=== PATIENT | female | born 1990 | race Caucasian/White ===

== ENCOUNTER 2023-09-11 15:57 | Emergency (ER) | payer OTHER, SELFPAY ==
--- NOTE | ~2023-09-11 | CT_ITS ---
EXAMINATION: CT abdomen pelvis w con DATE: 09/11/2023 21:56 INDICATION: suprapubic and RLQ pain TECHNIQUE: Computed tomography (CT) of the abdomen and pelvis was performed with 100 mL Omnipaque-350 intravenous contrast. Automated exposure control and iterative reconstruction technique were employe d. The dose-length product was 365.90 mGy-cm. COMPARISON: Ultrasound pelvis, same date. FINDINGS: Lower thorax: Unremarkable Liver: Normal. Biliary/Gallbladder: Gallbladder is normal. No bile duct dilation. Pancreas: No mass or duct dilation. Spleen: Normal. Adrenals:No mass. Kidneys: No suspicious mass, obstructing stone, or hydronephrosis. GI tract: Mild distal esophageal and gastric wall edema. The duodenal C-loop does not cross the midli ne. The majority of small bowel is located in the right abdomen. The majority of the large bowel is l ocated in the left abdomen, with the cecum in the deep pelvis. No small or large bowel dilation. Norm al appendix morphology. The appendix is located in the deep right pelvis. Diverticulosis without dive rticulitis. Mesentery/Peritoneum: No ascites, mass, or free air. Single enlarged mesenteric lymph node, likely re active. Retroperitoneum: No mass. Pelvis: Normal uterus. IUD in good position. Mildly prominent periuterine and pelvic veins. Multiple bilateral ovarian follicles. Simple 1.6 cm simple left ovarian cyst versus dominant follicle. No CT e vidence of ovarian torsion normal urinary bladder. Soft Tissues: Soft tissues and body wall unremarkable. Bones: No acute osseous finding. IMPRESSION: Mild esophagitis/gastritis. Intestinal malrotation, without current acute complication. Intestinal malrotation predisposes patien ts to mid gut volvulus and internal hernias. Consider surgical referral. Mildly prominent periuterine and pelvic veins, as can be seen with pelvic congestion syndrome. Correl ate clinically for persistent dull pelvic pain lasting > 6 months, dysmenorrhea, dyspareunia, postcoi mac ache, and urinary symptoms. Reviewed, dictated and finalized at location K. IMPRESSION: Mild esophagitis/gastritis. Intestinal malrotation, without current acute complication. Intestinal malrotat ion predisposes patients to mid gut volvulus and internal hernias. Consider dk gical referral. Mildly prominent periuterine and pelvic veins, as can be seen with pelvic conge stion syndrome. Correlate clinically for persistent dull pelvic pain lasting > 6 months, dysmenorrhea, dyspareunia, postcoital ache, and urinary symptoms.
--- NOTE | ~2023-09-11 | US_ITS ---
EXAMINATION: US pelvic complete w TV DATE: 09/11/2023 19:24 INDICATION: pelvic pain, spotting TECHNIQUE: Multiple transabdominal and endovaginal sonographic images of the pelvis were obtained. COMPARISON: None. FINDINGS: Uterus: 6.4 x 2.8 x 3.4 cm. IUD, in good position. Multiple nabothian cysts. Endometrial complex mignon ures 3 mm. Right Ovary: 2.2 x 2.7 x 2.2 cm. Vascular flow is present. Left Ovary: Not visualized. There is no free fluid in the pelvis. IMPRESSION: Left ovary not visualized. IUD, in good position. Otherwise normal pelvic sonogram findings. Reviewed, dictated and finalized at location K. IMPRESSION: Left ovary not visualized. IUD, in good position. Otherwise normal pelvic sonog chang findings.
[2023-09-11 16:15] VITALS: BP 127/76; PULSE 86; RESP 17; TEMP 36.6; O2SAT 98
--- NOTE | 2023-09-11 17:25 | ED.FEMALEGU ---
HPI - Female Genitourinary General Chief complaint: Urogenital-Female <KIMBERLY Hernandez Last Filed: 09/11/23 17:33> Stated complaint: bacterial vaginosis <KIMBERLY Hernandez Last Filed: 09/11/23 17:33> Time Seen by Provider: 09/11/23 17:25 <KIMBERLY Hernandez Last Filed: 09/11/23 17:33> Focused HPI: Patient is a 33 y/o female who presents to the ED with c/o pelvic pain. Patient reports that she was treated for BV 1 month ago. She has had recurrent pelvic and suprapubic pain over the last 1 week, which she felt may be a recurrence of her BV. She made appointment with her OBGYN, Dr. Royce Orozco for . Over the last couple days, she has been feeling lightheaded. She went to an urgent care yesterday and was prescribed Flagyl. Has had 3 doses so far, but still feeling lightheaded today. Also noted her urine to be dark today, which prompted her presentation. Reports intermittent nausea, dysuria, thick/green vaginal discharge, vaginal spotting, denies vomiting, fevers. Patient is currently sexually active. GENERAL: Well-appearing, well-nourished, and in no acute distress. HEAD: Normocephalic, atraumatic. CHEST: Clear to auscultation. ?No respiratory distress. HEART: Regular rate and rhythm.? NEURO: ?Alert and oriented x3. Patient screened in triage and initial orders placed.? ?Additional care and disposition to be based upon?diagnostic testing and treatment. <KIMBERLY Hernandez Last Filed: 09/11/23 17:33> Source: patient <KIMBERLY Hernandez Last Filed: 09/11/23 17:33> Mode of arrival: ambulatory <KIMBERLY Hernandez Last Filed: 09/11/23 17:33> Limitations: no limitations <KIMBERLY Hernandez Last Filed: 09/11/23 17:33> History of Present Illness HPI Narrative: 33-year-old female presents to emergency department complaining of pelvic pain for about 1 week. Patient states she was treated for BV previously and is unsure if she has BV again because it feels the same. She was reporting pain her suprapubic region and some on the right lower quadrant. States she started her period yesterday and is having light vaginal some bleeding she describes as spotting. She reports Dysuria and a green vaginal discharge but denies foul smell. She is reporting some vaginal itchiness. Denies vomiting, fever, diarrhea. No prior surgeries on her abdomen. She does have an IUD in place. she is sexually active with 1 partner And denies concern for STDs. <Elizabeth Sanon PA-C - Last Filed: 09/11/23 23:46> Related Data Allergies/Adverse reactions: Allergies Allergy/AdvReac Type Severity Reaction Status Date / Time No Known Allergies Allergy Verified 09/11/23 15:58 <Luh Frederick PA-C - Last Filed: 09/11/23 17:33> Review of Systems Review of Systems: CONSTITUTIONAL: Denies fever, chills, or sweats. EYES: Denies visual changes, redness, or discharge. ENT: Denies rhinorrhea, congestion, sore throat, or otalgia. CARDIOVASCULAR: Denies chest pain, palpitations, or edema. RESPIRATORY: Denies cough or dyspnea. GASTROINTESTINAL: See HPI GENITOURINARY: see HPI SKIN: Denies rash or itching. MUSCULOSKELETAL: Denies back pain, joint pain, or myalgia. NEUROLOGIC: Denies headache, numbness, or weakness. PSYCHIATRIC: Denies anxiety or depression. <Elizabeth Sanon PA-C - Last Filed: 09/11/23 23:46> Exam Narrative: GENERAL: Well-appearing, well-nourished, and in no acute distress. nontoxic appearing . Resting comfortably in exam bed HEAD: Normocephalic, atraumatic. EYES: PERRLA and EOMI. ENT: Nares clear, no rhinorrhea or epistaxis. Mucous membranes moist. NECK: Supple. CHEST: Clear to auscultation. No respiratory distress. HEART: Regular rate and rhythm. No murmur heard. Normal peripheral pulses. ABDOMEN: normoactive bowel sounds. Abdomen soft mild tenderness in the suprapubic region and right lower jose
[2023-09-11 18:02] LABS: Appearance Urine Clear (Clear); Bacteria Urine None Seen /hpf; Bilirubin Urine Negative (Negative); Blood Urine Negative (Negative); Color Urine Yellow (Yellow); Glucose Urine UA Negative (Negative); Ketones Urine Negative (Negative); Leukocyte Esterase Ur Trace LEU/UL (Negative); Nitrate Urine Negative (Negative); Non Pathogenic Casts 0-2; Protein Urine Negative (Negative); Specific Grav Ur 1.018 (1.001-1.035); Squamous Epithelial Cell Urine None Seen /hpf (Few); Urobilinogen Urine 0.2 mg/dL (<2.0); WBC Urine 0-5 /hpf (0-3)
[2023-09-11 18:24] LABS: Add Urine Microscopic? YES
[2023-09-11 18:36] VITALS: PULSE 52; RESP 16; TEMP 37.2; O2SAT 99
--- NOTE | 2023-09-11 18:48 | PC.NURSE ---
IV fluids not started after IV insert because ultrasound requested them to be unhooked before taking them down. educated ultrasound to use call light when pt comes back so I can infuse fluids
[2023-09-11 18:53] LABS: Pregnancy On Board Control Positive; Urine Pregnancy Test Negative
--- NOTE | 2023-09-11 19:06 | ECG_ITS ---
Measurements Intervals [place] Rate: 48 P: 51 WV: 138 QRS: 37 QRSD: 100 T: 39 QT: 423 QTc: 378 Interpretive Statements SINUS BRADYCARDIA WITH SINUS ARRHYTHMIA INCOMPLETE RIGHT BUNDLE BRANCH BLOCK ABNORMAL ECG NO PREVIOUS ECG AVAILABLE FOR COMPARISON Electronically Signed On 09-12-2023 6:24:21 CDT by Elder Diaz D.O.
[2023-09-11] MEDS: SODIUM CHLORIDE 0.9% IV 1,000 ML 999 ML IV CONT (19:15)
[2023-09-11 19:58] VITALS: BP 126/73; PULSE 76; RESP 16; O2SAT 100
[2023-09-11 20:02] LABS: Trichomonas Vag PCR NOT DETECTED (NOT DETECTE)
[2023-09-11 20:26] LABS: Chlamydia trachomatis NOT DETECTED (NOT DETECTE); Neisseria gonorrhoeae PCR NOT DETECTED (NOT DETECTE)
[2023-09-11 21:16] VITALS: BP 111/68; PULSE 56; RESP 14; O2SAT 100
[2023-09-11 21:25] LABS: Basophils Percent Auto 0.3 % (0.2-1.2); Eosinophils Percent Auto 0.2 % (0-4.4); Hematocrit 37.5 % (37.0-47.0); Hemoglobin 12.4 g/dL (12.0-15.0); Immature Granulocyte Absolute 0.04 K/mm3 (0.00-0.031); Immature Granulocyte Percent A 0.3 % (0-0.5); Lymphocytes Absolute Auto 1.78 K/mm3 (0.9-3.2); Lymphocytes Percent Auto 12.4 % (18.3-44.2); Mean Corpuscular HGB Conc 33.1 g/dl (32-36); Mean Corpuscular Hemoglobin 31.4 pg (26-34); Mean Corpuscular Volume 94.9 fl (80-100); Mean Platelet Volume 9.1 fl (7.4-10.4); Monocytes Absolute Auto 0.7 K/mm3 (0.1-0.6); Monocytes Percent Auto 5.1 % (2.6-8.5); Neutrophils Absolute Auto 11.7 K/mm3 (1.3-6.7); Neutrophils Percent Auto 81.7 % (45.5-73.1); Platelet Count Result 329 k/mm3 (150-375); Red Blood Count 3.95 M/mm3 (4.2-5.4); Red Cell Distribution Width 12.7 % (11.5-14.5); White Blood Count 14.4 K/mm3 (4.5-10.0)
[2023-09-11 21:33] LABS: Alanine Aminotransferase 17 U/L (6-35); Albumin Level 3.7 g/dL (3.5-5.1); Alkaline Phosphatase 52 U/L (38-126); Anion Gap 4 mmol/L (8-16); Aspartate Amino Transferase 18 U/L (14-36); Bilirubin,Total 0.5 mg/dL (0.2-1.3); Blood Urea Nitrogen 16 mg/dL (7-17); Calcium 8.1 mg/dL (8.4-10.2); Carbon Dioxide 26 mmol/L (22-30); Chloride 106 mmol/L (98-107); Estimated CRCL calculation 104 ml/min; Estimated Glomerular Filt Rate > 60; Glucose 89 mg/dL (65-110); Magnesium 2.3 mg/dL (1.6-2.3); Potassium 3.7 mmol/L (3.4-5.0); Sodium 136 mmol/L (137-145)
[2023-09-11 22:16] VITALS: PULSE 64; RESP 15; O2SAT 100
[2023-09-11] MEDS: FLUCONAZOLE 150 MG TABLET PO (23:52)
== END 2023-09-12 00:01 | disposition home or self-care (01) ==
PROVIDERS: Physician Assistant; Emergency Provider Physician Assistant
DX: N76.0 Acute vaginitis (principal); B37.31 Acute candidiasis of vulva and vagina
CPT/HCPCS: 36415; 74177; 76830; 76856; 80053; 81025; 83735; 85025; 87491; 87591; 87661; 93005; 96360; 99284; A9270; J7030; Q9967

== ENCOUNTER 2023-10-22 01:36 | Emergency (ER) | payer OTHER, SELFPAY ==
[2023-10-22 01:41] VITALS: BP 122/85; PULSE 88; RESP 18; TEMP 36.9; O2SAT 98
[2023-10-22 01:46] VITALS: BP 101/62; PULSE 85; RESP 18; O2SAT 100
--- NOTE | 2023-10-22 02:07 | ED.GENADULT ---
HPI - General Adult General Chief complaint: Extremity Injury, Lower Stated complaint: pain in righrt leg and arm Time Seen by Provider: 10/22/23 01:55 History of Present Illness HPI narrative: This is a 33-year-old female presenting with pain in her right arm and her right leg. Patient says that the pain is worse when she is walking around at work. She was googling her symptoms tonight And she was concerned she might have a DVT. Patient has significant health-related anxiety as she has recently been diagnosed with BV, pelvic congestion and possible endometriosis. She is tearful during the interview. Patient has appointment to see her primary care physician this afternoon. Patient has no history of trauma cancer immobilization, previous DVT PE or control use. 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 EYES: EOMI, NOSE: Atraumatic NECK: Trachea midline RESPIRATORY: No increased rate of breathing CTAB CARDIOVASCULAR: RRR, No peripheral edema. Calves are equal in circumference. No tenderness to palpation along the calf. Pulses intact. ABDOMINAL: Non-distended MUSCULOSKELETAl: No obvious deformities NEURO: Alert. Moving 4/4 extremities SKIN:: Warm, dry. Normal color PSYCHIATRIC: anxious Course Vital Signs Vital signs: Vital Signs Temperature 98.4 F 10/22/23 01:41 Pulse Rate 88 10/22/23 01:41 Respiratory Rate 18 10/22/23 01:41 Blood Pressure 122/85 10/22/23 01:41 Pulse Oximetry 98 10/22/23 01:41 Oxygen Delivery Room Air 10/22/23 01:41 Temperature 98.4 F 10/22/23 01:41 Pulse Rate 85 10/22/23 01:46 Respiratory Rate 18 10/22/23 01:46 Blood Pressure 101/62 10/22/23 01:46 Pulse Oximetry 100 10/22/23 01:46 Oxygen Delivery Room Air 10/22/23 01:41 Medical Decision Making MDM Narrative Medical decision making narrative: -Course: this is a 33-year-old female with a significant health-related anxiety presenting with right calf and right arm pain. She was googling her symptoms is concerned about a blood clot. Patient has no physical exam findings of a DVT and no risk factors. Calves are equal in diameter bilateral. \We do not have ultrasound at night. I offered to give her a dose of anticoagulation and schedule her for a morning venous ultrasound but the patient declined. She then said she is not sure if any of her symptoms are real as she's been having significant anxiety about her health. She begins crying heavily at this time. She does have an appointment to see her primary care physician later this afternoon. patient will follow-up with her primary care physician this afternoon return if her condition is to worsen. -DDX includes but is not limited to: Anxiety, DVT, MSK pain -Co-morbidities complicating care: health-related anxiety -Social determinants of health: anthony at [facility], denies drugs/etoh. -Shared decision making / Disposition: discharged. Vital Signs Vital Signs: Vital Signs Temperature 98.4 F 10/22/23 01:41 Pulse Rate 88 10/22/23 01:41 Respiratory Rate 18 10/22/23 01:41
== END 2023-10-22 02:22 | disposition home or self-care (01) ==
PROVIDERS: Emergency Provider Emergency Medicine
DX: M79.601 Pain in right arm (principal); M79.604 Pain in right leg; F41.9 Anxiety disorder, unspecified
CPT/HCPCS: 99282

== ENCOUNTER 2023-11-23 10:53 | Outpatient (CLI) | payer OTHER, SELFPAY ==
--- NOTE | ~2023-11-23 | MMUS_ITS ---
EXAMINATION: MM diagnostic shannan BI w jodie, US breast BI complete HISTORY: Palpable right breast abnormality TECHNIQUE: Additional 3-D tomosynthesis images of the breasts were performed and synthetic 2-D images were generated. CAD analysis was submitted and interpreted. High resolution bilateral complete breas t ultrasound was performed. COMPARISON: None BREAST PARENCHYMAL COMPOSITION: Not dense: There are scattered areas of fibroglandular density. FINDINGS: MAMMOGRAPHIC FINDINGS: There is an obscured mass in the upper outer quadrant of the right breast. There is a partially obscu red mass in the lower outer quadrant of the left breast posteriorly. There are no suspicious calcific ations or architectural distortion. ULTRASOUND: Complete bilateral US of all 4 quadrants of the breasts and retroareolar region was reviewed. Right breast: At 11:00, 6 cm from the nipple in the area of mammographic abnormality there is an oval hypoechoic parallel oriented circumscribed mass without posterior features or internal vascularity m easuring 11 mm. Left breast: At 4:00, 5 cm from the nipple in the area of mammographic abnormality there is an oval c ircumscribed hypoechoic 1.3 cm mass without posterior features. There is marginal vascularity. At 5:0 0, 4 cm from the nipple, there is an oval hypoechoic mass measuring 7 mm. There is an adjacent simila r appearing 4 mm mass, both with echogenic hilum, possibly cluster of intramammary lymph nodes. IMPRESSION: 1. Probable benign bilateral breast findings. 2. Recommend 6 month follow-up diagnostic bilateral mammogram and Limited ultrasound. BI-RADS category 3, probably benign findings. Reviewed, dictated and finalized at location B. IMPRESSION: 1. Probable benign bilateral breast findings. 2. Recommend 6 month follow-up diagnostic bilateral mammogram and Limited ultra sound. BI-RADS category 3, probably benign findings.
== END 2023-11-23 10:54 | disposition home or self-care (01) ==
LOC: ANHIMG 10:56
PROVIDERS: PCP Physician Assistant; Visit Provider Obstetrics & Gynecology
DX: N64.4 Mastodynia (principal)
CPT/HCPCS: 76641; 77062; 77066; G0279

== ENCOUNTER 2024-06-23 13:12 | Outpatient (CLI) | payer OTHER, SELFPAY ==
--- NOTE | ~2024-06-23 | MMUS_ITS ---
EXAMINATION: MM diagnostic shannan BI w jodie, US breast BI limited HISTORY: 6 month follow-up TECHNIQUE: Additional 3-D tomosynthesis images of the breasts were performed and synthetic 2-D images were generated. CAD analysis was submitted and interpreted. High resolution limited bilateral breast ultrasound was performed. COMPARISON: 11/23/2023 BREAST PARENCHYMAL COMPOSITION:Not Dense. There are scattered areas of fibroglandular density. FINDINGS: MAMMOGRAPHIC FINDINGS: Unremarkable pattern of both breasts is similar to prior exam. Stable small low-density mass in the u pper, outer right breast. Stable low-density ovoid mass at the posterior, central left breast. Suspec arielle additional low-density mass in the central left breast at the mid to anterior third. ULTRASOUND: At the 11:00 position right breast, 6 cm from the nipple, there is a 1.0 x 0.8 x 0.4 cm well-circumsc ribed ovoid hypoechoic solid mass. No posterior shadowing. In the left breast 4:00 position, 5 cm from the nipple, there is a 0.9 x 1.0 x 0.5 cm hypoechoic erika d mass, circumscribed, parallel, without posterior shadowing. At the left breast 5:00 position, 4 cm from the nipple, there is a reniform mass with fatty hilum, most compatible with benign lymph node. IMPRESSION: Stable bilateral breast masses, as above, most compatible with benign findings. Return to screening m ammography advised. BI-RADS Category 2: Benign finding(s). Reviewed, dictated and finalized at location M. MBLER CONVERTIBLE TOP IMPRESSION: Stable bilateral breast masses, as above, most compatible with benign findings. Return to screening mammography advised. BI-RADS Category 2: Benign finding(s).
== END 2024-06-23 13:13 | disposition home or self-care (01) ==
LOC: ANHIMG 13:13
PROVIDERS: PCP Physician Assistant; Visit Provider Obstetrics & Gynecology
DX: R92.8 Other abnormal and inconclusive findings on diagnostic imaging of breast (principal); N63.11 Unspecified lump in the right breast, upper outer quadrant; N63.42 Unspecified lump in left breast, subareolar
CPT/HCPCS: 76642; 77062; 77066; G0279